=== PATIENT | male | born 1990 | race Caucasian/White ===

== ENCOUNTER → 2019-03-13 | Outpatient (CLI) | payer OTHER ==
--- NOTE | 2019-03-13 15:21 | US ---
EXAMINATION TYPE: US kidneys/renal and bladder DATE OF EXAM: 03/13/2019 COMPARISON: NONE CLINICAL HISTORY: R31.9 Hematuria; N20.0 Kidney stones. Hx of kidney stones. EXAM MEASUREMENTS: Right Kidney: 11.5 x 4.3 x 4.7 cm Left Kidney: 11.6 x 5.2 x 4.5 cm Right Kidney: No hydronephrosis or masses seen Left Kidney: No hydronephrosis or masses seen Bladder: wnl Bilateral Jets seen: No There is no evidence for hydronephrosis at this point in time. No nephrolithiasis is seen. No morgan s are identified. The urinary bladder is anechoic. IMPRESSION: No hydronephrosis of either kidney. No sonographic evidence of nephrolithiasis.
== END | disposition home or self-care (01) ==
LOC: RADUSWWP 14:50
PROVIDERS: ATTEND Family Medicine
DX: N20.0 Calculus of kidney (principal)
CPT/HCPCS: 76770

== ENCOUNTER 2020-08-12 10:24 | Emergency (ER) | payer OTHER ==
[2020-08-12 10:34] VITALS: BP 129/89; PULSE 79; RESP 18; TEMP 97.5
[2020-08-12] MEDS ORDERED: CYCLOBENZAPRINE 10 MG TAB PO STA (10:54)
[2020-08-12] MEDS ORDERED: KETOROLAC 15 MG/ML 1 ML VIAL IM STA (10:54)
[2020-08-12] MEDS ORDERED: LIDOCAINE 5% PATCH TOPICAL STA (10:54)
--- NOTE | 2020-08-12 11:28 | ED ---
Back Pain HPI - General Chief Complaint: Back Pain/Injury Stated Complaint: Back injury Time Seen by Provider: 08/12/20 10:40 Source: patient, family Limitations: no limitations - History of Present Illness Initial Comments: 30-year-old male presents to emergency Department chief complaint of back pain. States he has history of intermittent chronic back pain but has never underwent a full evaluation for her. States this most recent pain occurred 2 days ago after he was removing a heavy bathtub. States he felt some pain, mostly located on the right lumbar region without any radiation. States the pain is sharp comes and goes. Reports taking [id number] analgesics with no significant improvement in symptoms. States he went to the chiropractor this morning which did not help with any of his pain so he decided to come into the emergency department. Denies any saddle anesthesia, urinary retention with overflow or bowel incontinence. - Related Data Home Medications Medication Instructions Recorded Confirmed Ibuprofen [Motrin Ib] 600 mg PO Q8H PRN 08/12/20 08/12/20 Previous Rx's Medication Instructions Recorded Cyclobenzaprine [Flexeril] 10 mg PO TID PRN #15 tab 08/12/20 methylPREDNISolone [Medrol Dose 4 mg PO DIRECTED #1 pack 08/12/20 Pack] Allergies Allergy/AdvReac Type Severity Reaction Status Date / Time No Known Allergies Allergy Verified 08/12/20 11:47 Review of Systems ROS Statement: Those systems with pertinent positive or pertinent negative responses have been documented in the HPI. ROS Other: All systems not noted in ROS Statement are negative. Past Medical History Past Medical History: No Reported History History of Any Multi-Drug Resistant Organisms: None Reported Past Surgical History: No Surgical Hx Reported Past Psychological History: No Psychological Hx Reported Smoking Status: Never smoker Past Alcohol Use History: None Reported Past Drug Use History: Marijuana General Exam Limitations: no limitations General appearance: alert, in no apparent distress Head exam: Present: atraumatic, normocephalic, normal inspection Eye exam: Present: normal appearance, PERRL, EOMI Pupils: Present: normal accommodation ENT exam: Present: normal exam, normal oropharynx, mucous membranes moist Neck exam: Present: normal inspection, full ROM. Absent: tenderness Respiratory exam: Present: normal lung sounds bilaterally. Absent: respiratory distress Cardiovascular Exam: Present: regular rate, normal heart sounds. Absent: normal rhythm, bradycardia, systolic murmur Extremities exam: Present: normal inspection, full ROM. Absent: tenderness Back exam: Present: normal inspection, full ROM, tenderness, paraspinal tenderness (Right paraspinal tenderness), other (Positive leg raise test). Absent: muscle spasm, vertebral tenderness Neurological exam: Present: alert, oriented X3 Psychiatric exam: Present: normal affect, normal mood Skin exam: Present: warm, dry, intact, normal color Course Vital Signs 08/12/20 10:31 Temperature 97.5 F L Pulse Rate 79 Respiratory 18 Rate Blood Pressure 129/89 O2 Sat by Pulse 97 Oximetry Medical Decision Making - Medical Decision Making 30-year-old male presents to emergency Department chief complaint of back pain. On physical examination, localized tenderness to the right lumbosacral region. X-ray of the lumbar spine is unremarkable. No concern for cauda equina at this time. Patient was given a Lidoderm patch, Toradol, Flexeril. Reevaluation, he reports some improvement of symptoms but is still not able tingling. Patient w as given Dilaudid. Patient was reevaluated again, he was able to ambulate. I gave him a prescription for Flexeril. Also given Tylenol 3 starter pack. Advised not to mix the medications and the side effects from medications. Advised him to follow-up with security services specialist. Return parameters were thoroughly discussed with patient was understanding and agreeable. Case discussed with physician. Disposition Clinical Impression: Mechanical back pain Disposition: HOME SELF-CARE Condition: Stable Instructions (If sedation given, give patient instructions): Acute Low Back Pain (ED) Additional Instructions: Please return to the Emergency Department if symptoms worsen or any other concerns. Prescriptions: Cyclobenzaprine [Flexeril] 10 mg PO TID PRN #15 tab PRN Reason: Muscle Spasm methylPREDNISolone [Medrol Dose Pack] 4 mg PO DIRECTED #1 pack Is patient prescribed a controlled substance at d/c from ED?: No Referrals: Braydon Resendiz MD [Primary Care Provider] - 1-2 days Time of Disposition: 12:14
--- NOTE | 2020-08-12 11:30 | XR ---
EXAMINATION TYPE: XR lumbar spine 2 or 3V DATE OF EXAM: 08/12/2020 COMPARISON: NONE HISTORY: Lumbar injury after lifting 2 days ago TECHNIQUE: 3 views lumbar spine FINDINGS: There are 5 nonrib-bearing lumbar-type vertebral bodies. Vertebral body heights are preserved. Alignm ent is anatomic. No significant degenerative changes. IMPRESSION: Unremarkable lumbar spine.
[2020-08-12] MEDS ORDERED: HYDROmorphone 1 MG/ML 1 ML SYRINGE IM STA (11:54)
[2020-08-12] MEDS ORDERED: ACET/COD 300 MG/30 MG STARTER PACK 6 TAB BTL PO STA (12:13)
== END 2020-08-12 12:57 | disposition home or self-care (01) ==
LOC: EC 10:24
DX: F12.90 Cannabis use, unspecified, uncomplicated (principal)
CPT/HCPCS: 72100; 99283; 96372 ×2; J1170; J1885

== ENCOUNTER → 2022-07-08 | Outpatient (CLI) | payer OTHER ==
--- NOTE | 2022-07-08 13:23 | CA ---
Exercise Stress Test Report Name: Aniceto Uriarte Exam Date: 07/08/2022 09:11 Exam Location: [place] Stress Ht (in): 68 Wt (lb): 195 BSA: 2.02 Ordering Phys: Braydon Resendiz MD Referring Phys: MARLEY, Technologist: Yan Arellano Age: 31 Gender: M : 1990 Procedure CPT: Indications: R07.9; R06.02; I10 ICD-10 Codes: Patient History: Chest Pressure Medications: Meds past 24 hrs: Pretest Chest Pain: STRESS TEST David Protocol Exercise Duration (min:sec): 09:[address] Depressions (mm): Angina Score: Duvall Score: Resting HR (bpm): 79 Peak HR (bpm): 169 Resting BP (mmHg): 131 / 75 Peak BP (mmHg): 204 / 96 MPHR: 187 Target HR: 159 % MPHR: 90 METS: 11.8 Total Dose: Peak Dose: Atropine: Double Product: 24195 BP Response: Stress Termination: Reached target heart rate Stress Symptoms: No chest pain or symptoms Stress Summary: ECG ANALYSIS Resting ECG: Stress ECG: CONCLUSIONS Patient underwent exercise stress EKG with a David protocol treadmill stress test. Patient exercised into Stage 3 for a total of 9 minutes and 53 seconds reaching a total of 11.8 METS. Patient's maximum heart rate was 169 which represented 90 % age- predicted maximum heart rate. Stress EKG findings: At baseline patient's EKG showed normal sinus rhythm, normal axis, no significant ST or T wave abnormalities. At peak exercise, EKG showed no significant change from baseline. Conclusions: 1. Normal EKG response to exercise without evidence of inducible ischemia. 2. Good exercise capacity. Dr. Sedrick Mejia DO (Electronically Signed) Final Date: 08 Jul 2022 13:22
== END | disposition home or self-care (01) ==
LOC: RADNMMAIN 08:35
PROVIDERS: ATTEND Family Medicine
DX: R07.9 Chest pain, unspecified (principal); R06.02 Shortness of breath; I10 Essential (primary) hypertension
CPT/HCPCS: 93017

== ENCOUNTER 2023-09-03 18:27 | Emergency (ER) | payer OTHER ==
[2023-09-03 18:36] VITALS: RESP 18; TEMP 98.2
--- NOTE | 2023-09-03 19:18 | ED ---
Male Urogenital HPI - General Chief complaint: Abdominal Pain Stated complaint: Blood in urine Time Seen by Provider: 09/03/23 18:54 Source: patient, RN notes reviewed, old records reviewed Mode of arrival: ambulatory Limitations: no limitations - History of Present Illness Initial comments: This is a 33-year-old male to the ER for evaluation of blood in the urine. Patient has no pain no abdominal pain no blood thinners history of kidney stones sent to ER for evaluation of hematuria MD Complaint: dysuria (Hematuria) -: hour(s) Radiation: none Severity: mild Severity scale (1-10): 1 Improves with: none Reports: denies other symptoms - Related Data Home Medications Medication Instructions Recorded Confirmed Ibuprofen [Motrin Ib] 600 mg PO Q8H PRN 08/12/20 08/12/20 Previous Rx's Medication Instructions Recorded Cyclobenzaprine [Flexeril] 10 mg PO TID PRN #15 tab 08/12/20 methylPREDNISolone [Medrol Dose 4 mg PO DIRECTED #1 pack 08/12/20 Pack] Allergies Allergy/AdvReac Type Severity Reaction Status Date / Time No Known Allergies Allergy Verified 09/03/23 18:36 Review of Systems ROS Statement: Those systems with pertinent positive or pertinent negative responses have been documented in the HPI. ROS Other: All systems not noted in ROS Statement are negative. Past Medical History Past Medical History: No Reported History Additional Past Medical History / Comment(s): Keidney stones, chronic back pain History of Any Multi-Drug Resistant Organisms: None Reported Past Surgical History: No Surgical Hx Reported Past Psychological History: No Psychological Hx Reported Smoking Status: Former smoker Past Alcohol Use History: Rare Past Drug Use History: None Reported, Marijuana General Exam Limitations: no limitations General appearance: alert, in no apparent distress, anxious Head exam: Present: atraumatic, normocephalic, normal inspection Eye exam: Present: normal appearance, PERRL, EOMI. Absent: scleral icterus, conjunctival injection, periorbital swelling ENT exam: Present: normal exam, mucous membranes moist Neck exam: Present: normal inspection. Absent: tenderness, meningismus, lymphadenopathy Respiratory exam: Present: normal lung sounds bilaterally. Absent: respiratory distress, wheezes, rales, rhonchi, stridor Cardiovascular Exam: Present: normal rhythm, tachycardia, normal heart sounds. Absent: systolic murmur, diastolic murmur, rubs, gallop, clicks GI/Abdominal exam: Present: soft, normal bowel sounds. Absent: distended, tenderness, guarding, rebound, rigid Extremities exam: Present: normal inspection, full ROM, normal capillary refill. Absent: tenderness, pedal edema, joint swelling, calf tenderness Back exam: Present: normal inspection Neurological exam: Present: alert, oriented X3, CN II-XII intact Psychiatric exam: Present: normal affect, normal mood Skin exam: Present: warm, dry, intact, normal color. Absent: rash Course Vital Signs 09/03/23 09/03/23 18:31 21:17 Temperature 98.2 F Pulse Rate 106 H 87 Respiratory 18 18 Rate Blood Pressure 146/92 145/99 O2 Sat by Pulse 97 97 Oximetry - Reevaluation(s) Reevaluation #1: 09/03/23 19:17 Medical records reviewed Reevaluation #2: 09/03/23 19:18 Patient symptoms unchanged Reevaluation #3: 09/03/23 19:18 Patient informed of results and questions answered Reevaluation #4: Was pt. sent in by a medical professional or institution (, PA, NURSING INFORMATICS ANALYST, urgent care, hospital, or retirement...) When possible be specific @ -no Did you speak to anyone other than the patient for history (EMS, parent, family, police, friend...)? What history was obtained from this source @ -no Did you review nursing and triage notes (agree or disagree)? Why? @ -agree Are old charts reviewed (outside hosp., previous admission, EMS record, old EKG, old radiological studies, urgent care reports/EKG's, retirement records)? Report findings @ -yes Differential Diagnosis (chest pain, altered mental status, abdominal pain women, abdominal pain men, vaginal bleeding, weakness, fever, dyspnea, syncope, headache, dizziness, GI bleed, back pain, seizure, CVA, palpatations, mental health, musculoskeletal)? @ -prior EKG interpreted by me (3pts min.). @ -no X-rays interpreted by me (1pt min.). @ -no CT interpreted by me (1pt min.). @ -Yes for kidney stones U/S interpreted by me (1pt. min.). @ -no What testing was considered but not performed or refused? (CT, X-rays, U/S, labs)? Why? @ -none What meds were considered but not given or refused? Why? @ -none Did you discuss the management of the patient with other professionals (professionals i.e. , PA, NURSING INFORMATICS ANALYST, lab, RT, psych nurse, delinquency prevention social worker, barge captain, teacher, transit authority police officer, director of casework department)? Give summary @ -no Was smoking cessation discussed for >3mins.? @ -no Was critical care preformed (if so, how long)? @ -no Were there social determinants of health that impacted care today? How? (Homele ssness, low income, unemployed, alcoholism, drug addiction, transportation, low edu. Level, literacy, decrease access to med. care, long term, rehab)? @ -none Was there de-escalation of care discussed even if they declined (Discuss DNR or withdrawal of care, Hospice)? DNR status @ -no What co-morbidities impacted this encounter? (DM, HTN, Smoking, COPD, CAD, Cancer, CVA, ARF, Chemo, Hep., AIDS, mental health diagnosis, sleep apnea, morbid obesity)? @ -none Was patient admitted / discharged? Hospital course, mention meds given and route, prescriptions, significant lab abnormalities, going to OR and other pertinent info. @ - 33 male with abdominal pain and hematuria found to have kidney stones here in the ER symptoms and pain are controlled. Patient can be discharged home Discharge Undiagnosed new problem with uncertain prognosis? @ -no Drug Therapy requiring intensive monitoring for toxicity (Heparin, Nitro, Insulin, Cardizem)? @ -no Were any procedures done? @ -no Diagnosis/symptom? @ -Back pain abdominal pain kidney stone pain Acute, or Chronic, or Acute on Chronic? @ -Acute Uncomplicated (without systemic symptoms) or Complicated (systemic symptoms)? @ -Complicated Side effects of treatment? @ -no Exacerbation, Progression, or Severe Exacerbation? @ -exacerbation Poses a threat to life or bodily function? How? (Chest pain, USA, IA, pneumonia, PE, COPD, DKA, ARF, appy, cholecystitis, CVA, Diverticulitis, Homicidal, Suicidal, threat to staff... and all critical care pts) @ -yes with severe pain Reevaluation #5: Differential Abdominal Pain Men: Appendicitis, cholecystitis, diverticulosis, ischemic bowel, pancreatitis, hepatitis, UTI, gastroenteritis, AAA, incarcerated hernia, bowel obstruction, constipation, inflammatory bowel, hepatitis, peptic ulcer disease, splenic infarction, perforated viscus, testicular torsion, this is not meant to be an all-inclusive list Differential Back Pain: Strain, zoster, cauda equina syndrome, epidural abscess, vertebral osteomyelitis, discitis, fracture, subluxation, disc herniation, DJD, spinal s tenosis, dissection, AAA, pancreatitis, peptic ulcer disease, pyelonephritis, kidney stone, this is not meant to be an all-inclusive list. Medical Decision Making - Medical Decision Making 33 male with abdominal pain and hematuria found to have kidney stones here in the ER symptoms and pain are controlled. Patient can be discharged home - Lab Data Result diagrams: 09/03/23 19:11 09/03/23 19:11 Lab Results 09/03/23 09/03/23 09/03/23 Range/Units 19:11 19:11 19:11 WBC 7.2 (3.8-10.6) k/uL RBC 5.19 (4.30-5.90) m/uL Hgb 16.5 (13.0-17.5) gm/dL Hct 44.9 (39.0-53.0) % MCV 86.5 (80.0-100.0) fL MCH 31.9 (25.0-35.0) pg MCHC 36.9 (31.0-37.0) g/dL RDW 12.4 (11.5-15.5) % Plt Count 227 (150-450) k/uL MPV 9.9 Neutrophils % 65 % Lymphocytes % 25 % Monocytes % 6 % Eosinophils % 2 % Basophils % 1 % Neutrophils # 4.6 (1.3-7.7) k/uL Lymphocytes # 1.8 (1.0-4.8) k/uL Monocytes # 0.5 (0-1.0) k/uL Eosinophils # 0.1 (0-0.7) k/uL Basophils # 0.1 (0-0.2) k/uL Hyperchromasia Slight Sodium 137 (137-145) mmol/L Potassium 3.7 (3.5-5.1) mmol/L Chloride 106 (98-107) mmol/L Carbon Dioxide 24 (22-30) mmol/L Anion Gap 7 mmol/L BUN 11 (9-20) mg/dL Creatinine 0.88 (0.66-1.25) mg/dL Est GFR (CKD-EPI)AfAm >90 (>60 ml/min/1.73 sqM) Est GFR (CKD-EPI)NonAf >90 (>60 ml/min/1.73 sqM) Glucose 116 H (74-99) mg/dL Calcium 9.2 (8.4-10.2) mg/dL Total Bilirubin 0.5 (0.2-1.3) mg/dL AST 45 (17-59) U/L ALT 55 H (4-49) U/L Alkaline Phosphatase 66 (38-126) U/L Total Protein 6.5 (6.3-8.2) g/dL Albumin 4.3 (3.5-5.0) g/dL Amylase 44 (30-110) U/L Lipase 121 (23-300) U/L Urine Color Red Urine Appearance Cloudy (Clear) Urine pH 7.0 (5.0-8.0) Ur Specific [place] 1.018 (1.001-1.035) Urine Protein 1+ H (Negative) Urine Glucose (UA) Negative (Negative) Urine Ketones Negative (Negative) Urine Blood Large H (Negative) Urine Nitrite Negative (Negative) Urine Bilirubin Negative (Negative) Urine Urobilinogen <2.0 (<2.0) mg/dL Ur Leukocyte Esterase Small H (Negative) Urine RBC >182 H (0-5) /hpf Urine WBC 62 H (0-5) /hpf Urine WBC Clumps Few H (None) /hpf - Radiology Data Radiology results: report reviewed (CT abdomen pelvis is negative for acute disease), image reviewed Disposition Clinical Impression: Abdominal pain, Kidney stone, Hematuria Disposition: HOME SELF-CARE Condition: Good Instructions (If sedation given, give patient instructions): Hematuria (ED) Is patient prescribed a controlled substance at d/c from ED?: No Referrals: Braydon Resendiz MD [Primary Care Provider] - 1-2 days Alec Hernandez MD [STAFF PHYSICIAN] - 1-2 days Time of Disposition: 21:00
[2023-09-03 19:29] LABS: Appearance,Urine Cloudy (Clear); Basophils # (A) 0.1 k/uL (0-0.2); Basophils % (A) 1 %; Bilirubin,Urine Negative (Negative); Blood,Urine Large (Negative); Color,Urine Red; Eosinophils # (A) 0.1 k/uL (0-0.7); Eosinophils % (A) 2 %; Glucose,Urine (UA) Negative (Negative); HCT 44.9 % (39.0-53.0); HGB 16.5 gm/dL (13.0-17.5); Hyperchromasia Slight; Ketones,Urine Negative (Negative); Leukocyte Esterase,Urine Small (Negative); Lymphocytes # (A) 1.8 k/uL (1.0-4.8); Lymphocytes % (A) 25 %; MCH 31.9 pg (25.0-35.0); MCHC 36.9 g/dL (31.0-37.0); MCV 86.5 fL (80.0-100.0); Mean Platelet Volume 9.9; Monocytes # (A) 0.5 k/uL (0-1.0); Monocytes % (A) 6 %; Neutrophils # (A) 4.6 k/uL (1.3-7.7); Neutrophils % (A) 65 %; Nitrite,Urine Negative (Negative); Platelet Count 227 k/uL (150-450); Protein,Urine 1+ (Negative); RBC 5.19 m/uL (4.30-5.90); RBC,Urine >182 /hpf (0-5); RDW 12.4 % (11.5-15.5); Specific Gravity,Urine 1.018 (1.001-1.035); Urobilinogen,Urine <2.0 mg/dL (<2.0); WBC 7.2 k/uL (3.8-10.6); WBC,Urine 62 /hpf (0-5)
[2023-09-03] MEDS: SODIUM CHLORIDE 0.9% 1,000 ML IV STA (20:13)
[2023-09-03 20:16] LABS: ALT 55 U/L (4-49); AST 45 U/L (17-59); African American GFR (CKD) >90 (>60 ml/min/1.73 sqM); Albumin 4.3 g/dL (3.5-5.0); Alkaline Phosphatase 66 U/L (38-126); Amylase 44 U/L (30-110); Anion Gap 7 mmol/L; Blood Urea Nitrogen 11 mg/dL (9-20); Calcium 9.2 mg/dL (8.4-10.2); Carbon Dioxide 24 mmol/L (22-30); Chloride 106 mmol/L (98-107); Glucose 116 mg/dL (74-99); Lipase 121 U/L (23-300); Non-African American GFR(CKD) >90 (>60 ml/min/1.73 sqM); Potassium 3.7 mmol/L (3.5-5.1); Sodium 137 mmol/L (137-145); Total Bilirubin 0.5 mg/dL (0.2-1.3); Total Protein 6.5 g/dL (6.3-8.2)
--- NOTE | 2023-09-03 20:45 | CT ---
EXAMINATION TYPE: CT abdomen pelvis wo con CT DLP: 606.2 mGycm, Automated exposure control for dose reduction was used. DATE OF EXAM: 09/03/2023 8:27 PM COMPARISON: Ultrasound 03/13/2019 CLINICAL INDICATION:Male, 33 years old with history of abdominal pain; gross hematuria TECHNIQUE: Axial CT abdomen pelvis wo con;Sagittal and coronal reformats were created on a separate workstation. Contrast used: mL of , (none if empty) Oral contrast used: without Oral Contrast (none if empty) FINDINGS: LOWER CHEST: Unremarkable ABDOMEN LIVER: Unremarkable GALLBLADDER AND BILE DUCTS: Unremarkable. PANCREAS: Unremarkable. SPLEEN: Unremarkable. ADRENAL GLANDS: Unremarkable. KIDNEYS AND URETERS: Mild left hydronephrosis secondary obstructing 3 mm calculus at the pelvic brim. No right hydronephrosis and obstructing right renal contrast. PELVIS BLADDER: Unremarkable REPRODUCTIVE: Unremarkable. ABDOMEN & PELVIS STOMACH AND BOWEL: No evidence of bowel obstruction. PERITONEUM/RETROPERITONEUM: No evidence of pneumoperitoneum or free fluid. VASCULATURE: No evidence of aortic aneurysm. MUSCULOSKELETAL: No acute osseous abnormalities LYMPH NODES: No gross evidence for lymphadenopathy. SOFT TISSUE/ABDOMINAL WALL: Unremarkable IMPRESSION: 1. Mild left hydronephrosis secondary obstructing ureteral 3 mm calculus at the pelvic brim. 2. Nonobstructing right renal calculus.
[2023-09-03] MEDS: KETOROLAC 15 MG/ML 1 ML VIAL IVP STA (21:08)
[2023-09-03] MEDS: TAMSULOSIN 0.4 MG CAP.ER.24H PO STA (21:08)
[2023-09-03] MEDS: IBUPROFEN 600 MG STARTER PACK 4 TAB BTL PO STA (21:09)
[2023-09-03] MEDS: traMADol 50 MG STARTER PACK 3 TAB BTL PO STA (21:09)
[2023-09-03 21:22] VITALS: BP 145/99; PULSE 87
== END 2023-09-03 21:22 | disposition home or self-care (01) ==
LOC: EC 18:27
DX: N13.2 Hydronephrosis with renal and ureteral calculous obstruction (principal); Z87.891 Personal history of nicotine dependence
CPT/HCPCS: 36415; 80053; 82150; 83690; 85025; 81001; 74176; 99284; 96374; 96361; J1885